=== PATIENT | male | born 1950 | race American Indian/Alaskan Native ===

== ENCOUNTER 2020-07-08 01:50 | Inpatient (IN) | payer MEDICARE ==
[2020-07-08] MEDS ORDERED: methylPREDNISolone Sod Succinate 125 MG/2 ML INJ IV ONE (02:03)
[2020-07-08] MEDS ORDERED: IPRATROPIUM/ALBUTEROL SULFATE 3 ML AMPUL.NEB IH ONE (02:03)
[2020-07-08] MEDS ORDERED: ALBUTEROL 2.5 MG/3 ML NEBU IH ONE (02:03)
--- NOTE | 2020-07-08 02:05 | Event Note ---
ED Screening Note Date of service: 07/08/20 Time: 02:04 ED Screening Note: Patient is a 78-year-old -[place] male with a history of asthma presents to the ED with complaint of acute onset persistent shortness of breath, chest tightness and persistent dry cough for the last 3 hours. Patient states that he has used albuterol inhaler with no relief. Patient denies dizziness, syncope, fever, chills, nausea and vomiting, diarrhea, abdominal pain, sore throat, nasal and sinus congestion, vision changes, neck pain, diaphoresis or back pain. This initial assessment/diagnostic orders/clinical plan/treatment(s) is/are subject to change based on patients health status, clinical progression and re- assessment by fellow clinical providers in the ED. Further treatment and workup at subsequent clinical providers discretion. Patient/guardian urged not to elope from the ED as their condition may be serious if not clinically assessed and managed. Initial orders include: CBC, CMP, troponin, EKG, chest x-ray, nebulizer treatments
[2020-07-08] MEDS ORDERED: MAGNESIUM SULFATE 2 GM/50 ML BAG IV ONE (02:06)
--- NOTE | 2020-07-08 02:10 | Emergency Department Report ---
ED Shortness of Breath HPI - General Chief Complaint: Dyspnea/Respdistress Stated Complaint: ANSHUL Time Seen by Provider: 07/08/20 02:06 Source: patient Mode of arrival: Ambulatory Limitations: No Limitations - History of Present Illness Initial Comments: Patient is a 70-year-old male presents emergency room with complaints of difficulty breathing, shortness of breath, cough, wheezing. Patient has a history of asthma. Patient states been taking his asthma inhaler with no relief. Patient states symptoms started 3 hours ago. Patient dates symptoms w orsening. Patient denies chest pain. Patient states that his chest is tight. Patient states he is having pain with deep breath. Patient states his symptoms are better with rest and worse with exertion. Patient denies fever and chills. Patient states he has a dry cough. Patient denies recent travel. Patient denies recent international travel. Patient denies exposure to the novel coronavirus. Patient denies sick contacts. Patient denies fever and chills. Patient denies cough. Patient denies diarrhea. Patient denies coming in contact with anybody with symptoms of the novel coronavirus. MD Complaint: shortness of breath, cough -: Sudden Severity: severe Worsens With: lying flat, exertion Known History Of: asthma Associated Symptoms: chest pain, pain with inspiration, cough - Related Data Allergies Allergy/AdvReac Type Severity Reaction Status Date / Time No Known Allergies Allergy Unverified 07/08/20 02:21 ED Review of Systems ROS: Stated complaint: ANSHUL Other details as noted in HPI Constitutional: denies: chills, fever Eyes: denies: eye pain, eye discharge, vision change ENT: denies: ear pain, throat pain Respiratory: see HPI, cough, shortness of breath. denies: wheezing Cardiovascular: chest pain. denies: palpitations Endocrine: no symptoms reported Gastrointestinal: denies: abdominal pain, nausea, diarrhea Genitourinary: denies: urgency, dysuria Musculoskeletal: denies: back pain, joint swelling, arthralgia Skin: denies: rash, lesions Neurological: denies: headache, weakness, paresthesias Psychiatric: denies: anxiety, depression Hematological/Lymphatic: denies: easy bleeding, easy bruising ED Past Medical Hx - Past Medical History Previous Medical History?: Yes Hx Hypertension: Yes Hx Asthma: Yes - Surgical History Past Surgical History?: No - Family History Family history: no significant - Social History Smoking Status: Former Smoker Substance Use Type: None ED Physical Exam - General Limitations: No Limitations General appearance: alert, in distress - Head Head exam: Present: atraumatic, normocephalic - Eye Eye exam: Present: normal appearance - ENT ENT exam: Present: mucous membranes moist - Neck Neck exam: Present: normal inspection - Respiratory Respiratory exam: Present: respiratory distress, wheezes, accessory muscle use, decreased breath sounds - Cardiovascular Cardiovascular Exam: Present: regular rate, normal rhythm. Absent: systolic murmur, diastolic murmur, rubs, gallop - GI/Abdominal GI/Abdominal exam: Present: soft, normal bowel sounds - Rectal Rectal exam: Present: deferred - Extremities Exam Extremities exam: Present: normal inspection - Back Exam Back exam: Present: normal inspection - Neurological Exam Neurological exam: Present: alert, oriented X3 - Psychiatric Psychiatric exam: Present: normal affect, normal mood - Skin Skin exam: Present: warm, dry, intact, normal color. Absent: rash ED Course Vital Signs 07/08/20 07/08/20 07/08/20 02:07 02:21 02:31 Temperature 97.9 F 98.2 F Pulse Rate 117 H 101 H 102 H Respiratory 24 25 H 23 Rate Blood Pressure 205/140 191/105 Blood Pressure 191/105 [Right] O2 Sat by Pulse 92 96 97 Oximetry 07/08/20 07/08/20 07/08/20 02:45 03:01 04:01 Temperature Pulse Rate 97 H 95 H 94 H Respiratory 13 14 15 Rate Blood Pressure 158/89 158/89 148/67 Blood Pressure [Right] O2 Sat by Pulse 98 99 99 Oximetry - Reevaluation(s) Reevaluation #1: Patient is having difficulty breathing, increased work to breathe, wheezing and shortness of breath. Patient will be given mag, duo nebs and Solu-Medrol. 07/08/20 02:09 Reevaluation #2: Patient still having increased work to breathe. Patient has received mag, Solu- Medrol and is currently on a DuoNeb. Patient still having hypoxia and difficulty and increased work to breathe. Patient will be placed on BiPAP. 07/08/20 02:37 Reevaluation #3: Patient's work to breathe has improved. Patient on BiPAP. Patient still having slight wheezing but the wheezing has improved since initial evaluation. I discussed all results with patient. I discussed plan of care with patient. Patient agrees with plan of care and admission. Patient to be admitted to the hospitalist service. 07/08/20 03:12 - Consultations Consultation #1: Hospitalist consulted for admission. Hospitalist to admit patient. 07/08/20 03:13 ED Medical Decision Making - Lab Data Result diagrams: 07/08/20 02:19 07/08/20 02:19 - EKG Data -: EKG Interpreted by Me EKG shows normal: sinus rhythm, axis, intervals, QRS complexes, ST-T waves Rate: normal - Radiology Data Radiology results: report reviewed, image reviewed interpreted by me: Chest x-ray: No pneumonia, no pneumothorax, no foreign body, no osseous findings, no acute findings CHEST 1 VIEW 07/08/2020 1:27 AM INDICATION / CLINICAL INFORMATION: dyspnea. COMPARISON: None available. FINDINGS: SUPPORT DEVICES: None. HEART / MEDIASTINUM: No significant abnormality. LUNGS / PLEURA: No significant pulmonary or pleural abnormality. No pneumothorax. ADDITIONAL FINDINGS: No significant additional findings. IMPRESSION: No acute abnormality. - Medical Decision Making Patient is a 7-year-old male that presents emergency room with complaints of difficulty breathing, shortness of breath, cough, wheezing, asthmatic attack. Patient on initial evaluation found to be increased work of breathing, difficulty breathing, wheezing, short of breath, respiratory distress. Patient was given Solu-Medrol, magnesium and an hour-long DuoNeb. Patient continued to have increased work of breathing placed was placed on BiPAP. Patient was also hypoxic 100% oxygen and a DuoNeb. Patient responded well to BiPAP. Patient had labs done which were essentially unremarkable. Patient chest x-ray was negative for acute finding. Patient EKG was negative for acute findings and normal ST. Patient EKG shows a normal sinus rhythm. I personally reviewed the chest x-ray and EKG. Patient admitted to the hospital service for further evaluation and treatment and into the IMCU. Critical care time documented due to the multiple reassessments, prolonged time at the bedside, interpretation of diagnostics and labs. - Differential Diagnosis Shortness of breath, status asthmaticus, difficulty breathing, hypoxia, res Critical Care Time: Yes Critical care time in (mins) excluding proc time.: 45 Critical care attestation.: If time is entered above; I have spent that time in minutes in the direct care of this critically ill patient, excluding procedure time. Critical Care Time: 45 minutes ED Disposition Clinical Impression: Shortness of breath, Respiratory distress Respiratory failure Qualifiers: Chronicity: acute Respiratory failure complication: hypoxia Qualified Code(s): J96.01 - Acute respiratory failure with hypoxia Status asthmaticus Qualifiers: Asthma severity: severe Asthma persistence: persistent Qualified Code(s): J45.52 - Severe persistent asthma with status asthmaticus Disposition: 09 OP ADMIT IP TO THIS HOSP Is pt being admited?: Yes Does the pt Need Aspirin: No Condition: Critical Time of Disposition: 03:14
--- NOTE | 2020-07-08 02:35 | XRay Report ---
CHEST 1 VIEW 07/08/2020 1:27 AM INDICATION / CLINICAL INFORMATION: dyspnea. COMPARISON: None available. FINDINGS: SUPPORT DEVICES: None. HEART / MEDIASTINUM: No significant abnormality. LUNGS / PLEURA: No significant pulmonary or pleural abnormality. No pneumothorax. ADDITIONAL FINDINGS: No significant additional findings. IMPRESSION: No acute abnormality. Signer Name: Santy Arnold MD Signed: 07/08/2020 2:30 AM Workstation Name: [id number]
[2020-07-08 02:42] LABS: Basophils # (Auto) 0.1 K/mm3 (0.0-0.1); Basophils % (Auto) 0.9 % (0.0-1.8); Eosinophils # (Auto) 0.9 K/mm3 (0.0-0.4); Eosinophils % (Auto) 11.4 % (0.0-4.3); Hemoglobin 14.8 gm/dl (11.8-15.2); Lymphocytes # (Auto) 2.1 K/mm3 (1.2-5.4); Mean Corpuscular HGB Conc 33 % (32-34); Mean Corpuscular Volume 93 fl (84-94); Monocytes # (Auto) 0.8 K/mm3 (0.0-0.8); Monocytes % (Auto) 10.3 % (0.0-7.3); Platelet Count 286 K/mm3 (140-440); Red Blood Count 4.86 M/mm3 (3.65-5.03); Red Cell Distribution Width 14.6 % (13.2-15.2)
[2020-07-08 03:07] LABS: Alanine Aminotransferase 18 units/L (7-56); Albumin 3.8 g/dL (3.9-5); BUN/Creatinine Ratio 11; Blood Urea Nitrogen 14 mg/dL (9-20); Calcium 8.7 mg/dL (8.4-10.2); Hemolysis Index 10
--- NOTE | 2020-07-08 07:44 | History and Physical Report ---
History of Present Illness Date of examination: 07/08/20 Date of admission: 07/08/20 03:13 Chief complaint: Acute hypoxic respiratory failure/BiPAP/asthma exacerbation History of present illness: 70-year-old male patient with significant past medical history of bronchial asthma, hypertension presented to the emergency room with worsening shortness of breath chest tightness and cough. Patient used albuterol inhaler with no relief, patient denies any fever, no nausea vomiting or diaphoresis Patient denies upper respiratory symptoms, cough nonproductive. Initial work-up in the emergency room, chest x-ray no acute abnormality noted Patient received nebulizers and IV steroids with mild improvement No history of intubation in the past. Patient was severely hypoxemic requiring BiPAP. Past History Past Medical History: hypertension, other (Bronchial asthma) Past Surgical History: No surgical history Social history: smoking (Ex-smoker). denies: alcohol abuse, prescription drug abuse Family history: no significant family history Medications and Allergies Allergies Allergy/AdvReac Type Severity Reaction Status Date / Time No Known Allergies Allergy Unverified 07/08/20 02:21 Home Medications Medication Instructions Recorded Confirmed Last Taken Type amLODIPine 10 mg PO DAILY 07/08/20 07/08/20 Unknown History Review of Systems Constitutional: weakness, no weight loss, no weight gain, no fever, no chills Ears, nose, mouth and throat: no nasal congestion, no nasal discharge Cardiovascular: shortness of breath, no chest pain, no orthopnea, no palpitati ons Respiratory: cough, shortness of breath, no cough with sputum, no hemoptysis Gastrointestinal: no abdominal pain, no nausea, no vomiting Genitourinary Male: no dysuria, no hematuria Musculoskeletal: no myalgias, no arthritis Integumentary: no rash, no lesions Neurological: no seizures, no syncope Psychiatric: no anxiety, no depression Endocrine: no cold intolerance, no heat intolerance Hematologic/Lymphatic: no easy bruising, no easy bleeding Allergic/Immunologic: no urticaria, no allergic rhinitis Exam - Constitutional Vitals: Temp Pulse Resp BP Pulse Ox 98.2 F 89 12 141/88 96 07/08/20 02:21 07/08/20 06:00 07/08/20 06:00 07/08/20 06:00 07/08/20 06:00 General appearance: Present: mild distress, well-nourished - EENT Eyes: Present: PERRL, EOM intact - Neck Neck: Present: supple, normal ROM - Respiratory Respiratory effort: normal Respiratory: bilateral: diminished, rhonchi, negative: rales, wheezing - Cardiovascular Rhythm: regular Heart Sounds: Present: S1 & S2 - Extremities Extremities: no ischemia, No edema - Abdominal General gastrointestinal: Present: soft, non-tender, non-distended, normal bowel sounds - Integumentary Integumentary: Present: clear, warm - Musculoskeletal Musculoskeletal: strength equal bilaterally, generalized weakness - Psychiatric Psychiatric: appropriate mood/affect, cooperative - Neurologic Neurologic: CNII-XII intact, moves all extremities HEART Score - HEART Score Troponin: Troponin T < 0.010 ng/mL (0.00-0.029) 07/08/20 02:19 Results - Labs CBC & Chem 7: 07/08/20 02:19 07/08/20 02:19 Labs: Abnormal lab results 07/08/20 07/08/20 Range/Units 02:19 02:19 [place] % (Auto) 10.3 H (0.0-7.3) % Eos % (Auto) 11.4 H (0.0-4.3) % Eos # (Auto) 0.9 H (0.0-0.4) K/mm3 Glucose 110 H (75-100) mg/dL Albumin 3.8 L (3.9-5) g/dL Assessment and Plan --Acute hypoxic respiratory failure; requiring BiPAP Continue oxygen titrate O2 sats to more than 90% BiPAP as needed, treat the underlying cause Bronchial asthma exacerbation Pulmonary consult if needed --Acute exacerbation of bronchial asthma; Oxygen titrate O2 sats to more than 90% Nebulizers, IV steroids, IV antibiotics if needed Inhalation steroids, pulmonary evaluation if no improvement --Acute bronchitis; Secondary to acute exacerbation of bronchial asthma Bronchodilators, antibiotics, supportive care --Hypertension; moderate control low-oral dose hydralazine IV hydralazine as needed --DVT prophylaxis; Lovenox --Full CODE STATUS We will closely monitor the patient and adjust management as needed Patient may be downgraded from ICU2 to telemetry Plan of care reviewed with the patient and his nurse
[2020-07-08] MEDS: ALBUTEROL 2.5 MG/3 ML NEBU IH PRN ×2 (08:46→22:27)
[2020-07-08] MEDS: BUDESONIDE 0.25 MG/2 ML NEBU IH SCH ×2 (08:46→22:27)
[2020-07-08] MEDS: PANTOPRAZOLE 40 MG TAB PO SCH (09:38)
--- NOTE | 2020-07-08 12:06 | Event Note ---
Date: 07/08/20 I called and spoke with patient's daughter Ms Saleem [phone] and discussed in detail About the patient's condition, tests and reports, treatment and discharge plan, answered all her questions Encouraged her to call back if she has new questions or concerns, patient's nurse is aware of my conversation with the daughter
[2020-07-08] MEDS: hydrALAZINE 10 MG TAB PO SCH ×2 (15:17→21:21)
[2020-07-08] MEDS: methylPREDNISolone Sod Succinate 40 MG/1 ML INJ IV SCH ×2 (15:18→21:20)
[2020-07-08] MEDS: ENOXAPARIN 40 MG/0.4 ML INJ SUB-Q SCH (21:20)
[2020-07-08] MEDS: guaiFENesin DM 200/20 MG ORAL LIQD 10 ML PO PRN (21:20)
[2020-07-09] MEDS: methylPREDNISolone Sod Succinate 40 MG/1 ML INJ IV SCH ×3 (06:27→22:27)
[2020-07-09] MEDS: hydrALAZINE 10 MG TAB PO SCH (06:28)
[2020-07-09] MEDS: PANTOPRAZOLE 40 MG TAB PO SCH (08:22)
[2020-07-09] MEDS ORDERED: hydrALAZINE 10 MG TAB PO SCH (10:20)
--- NOTE | 2020-07-09 10:22 | Progress Note ---
Assessment and Plan Assessment and plan: --Acute hypoxic respiratory failure; requiring BiPAP Continue oxygen titrate O2 sats to more than 90% BiPAP as needed, treat the underlying cause Bronchial asthma exacerbation Pt is on 2 L of [place] oxygen today saturating 98% Evaluate for home O2 at discharge --Acute exacerbation of bronchial asthma; Oxygen titrate O2 sats to more than 90% Nebulizers, IV steroids, IV antibiotics if needed Inhalation steroids, pulmonary evaluation if no improvement --Acute bronchitis; Secondary to acute exacerbation of bronchial asthma Bronchodilators, antibiotics, supportive care --Hypertension; labile moderate control low-oral dose hydralazine IV hydralazine as needed, --DVT prophylaxis;;Lovenox --Full CODE STATUS We will closely monitor the patient and adjust management as needed I called Ms Saleem [phone] , patient's daughter and updated patient's condition, his oxygen levels, his improvement, and blood pressure fluctuation. She verbalized understanding Plan of care discussed in detail with the patient and his nurse History Interval history: I have seen and examined the patient at the bedside this afternoon Patient's chart and medications reviewed Patient feels slightly better, mild fluctuation of blood pressures Added hydralazine 25 mg 3 times a day Patient feels slightly better mild shortness of breath and some wheeze Vital signs noted Hospitalist Physical - Constitutional Vitals: Temp Pulse Resp BP Pulse Ox 97.5 F L 71 18 150/84 99 07/09/20 04:09 07/09/20 06:28 07/09/20 08:31 07/09/20 06:28 07/09/20 08:31 General appearance: Present: mild distress, well-nourished - EENT Eyes: Present: PERRL, EOM intact - Neck Neck: Present: supple, normal ROM - Respiratory Respiratory effort: normal Respiratory: bilateral: diminished, rhonchi, wheezing, negative: rales - Cardiovascular Rhythm: regular Heart Sounds: Present: S1 & S2 - Extremities Extremities: no ischemia, No edema - Abdominal General gastrointestinal: soft, non-tender, non-distended, normal bowel sounds - Integumentary Integumentary: Present: clear, warm - Psychiatric Psychiatric: appropriate mood/affect, cooperative - Neurologic Neurologic: CNII-XII intact, moves all extremities HEART Score - HEART Score Troponin: Troponin T < 0.010 ng/mL (0.00-0.029) 07/08/20 02:19 Results - Labs CBC & Chem 7: 07/08/20 02:19 07/08/20 02:19 Labs: Laboratory Last Values WBC 7.6 K/mm3 (4.5-11.0) 07/08/20 02:19 RBC 4.86 M/mm3 (3.65-5.03) 07/08/20 02:19 Hgb 14.8 gm/dl (11.8-15.2) 07/08/20 02:19 Hct 45.0 % (35.5-45.6) 07/08/20 02:19 MCV 93 fl (84-94) 07/08/20 02:19 MCH 31 pg (28-32) 07/08/20 02:19 MCHC 33 % (32-34) 07/08/20 02:19 RDW 14.6 % (13.2-15.2) 07/08/20 02:19 Plt Count 286 K/mm3 (140-440) 07/08/20 02:19 Lymph % (Auto) 28.0 % (13.4-35.0) 07/08/20 02:19 [place] % (Auto) 10.3 % (0.0-7.3) H 07/08/20 02:19 Eos % (Auto) 11.4 % (0.0-4.3) H 07/08/20 02:19 Baso % (Auto) 0.9 % (0.0-1.8) 07/08/20 02:19 Lymph # (Auto) 2.1 K/mm3 (1.2-5.4) 07/08/20 02:19 [place] # (Auto) 0.8 K/mm3 (0.0-0.8) 07/08/20 02:19 Eos # (Auto) 0.9 K/mm3 (0.0-0.4) H 07/08/20 02:19 Baso # (Auto) 0.1 K/mm3 (0.0-0.1) 07/08/20 02:19 Seg Neutrophils % 49.4 % (40.0-70.0) 07/08/20 02:19 Seg Neutrophils # 3.8 K/mm3 (1.8-7.7) 07/08/20 02:19 Sodium 140 mmol/L (137-145) 07/08/20 02:19 Potassium 4.0 mmol/L (3.6-5.0) 07/08/20 02:19 Chloride 105.1 mmol/L (98-107) 07/08/20 02:19 Carbon Dioxide 25 mmol/L (22-30) 07/08/20 02:19 Anion Gap 14 mmol/L 07/08/20 02:19 BUN 14 mg/dL (9-20) 07/08/20 02:19 Creatinine 1.3 mg/dL (0.8-1.3) 07/08/20 02:19 Estimated GFR > 60 ml/min 07/08/20 02:19 BUN/Creatinine Ratio 11 % 07/08/20 02:19 Glucose 110 mg/dL (75-100) H 07/08/20 02:19 Calcium 8.7 mg/dL (8.4-10.2) 07/08/20 02:19 Total Bilirubin 0.40 mg/dL (0.1-1.2) 07/08/20 02:19 AST 17 units/L (5-40) 07/08/20 02:19 ALT 18 units/L (7-56) 07/08/20 02:19 Alkaline Phosphatase 83 units/L (35-129) 07/08/20 02:19 Troponin T < 0.010 ng/mL (0.00-0.029) 07/08/20 02:19 Total Protein 6.9 g/dL (6.3-8.2) 07/08/20 02:19 Albumin 3.8 g/dL (3.9-5) L 07/08/20 02:19 Albumin/Globulin Ratio 1.2 % 07/08/20 02:19 [place]/IV: Voiding Method Toilet Active Medications - Current Medications Current Medications: Generic Name Dose Route Start Last Admin Trade Name Freq PRN Reason Stop Dose Admin Albuterol 2.5 mg 07/08/20 07:46 07/08/20 22:27 Albuterol 2.5 Mg/3 Ml Nebu IH 2.5 mg Q4HRT PRN Administration Shortness Of Breath Budesonide 0.25 mg 07/08/20 08:15 07/08/20 22:27 Budesonide 0.25 Mg/2 Ml Nebu IH 0.25 mg Q12HRT TOMMY Administration Enoxaparin Sodium 40 mg 07/08/20 22:00 07/08/20 21:20 Enoxaparin 40 Mg/0.4 Ml Inj SUB-Q 40 mg QDAY@2200 TOMMY Administration Protocol Guaifenesin 10 ml 07/08/20 07:54 07/08/20 21:20 Guaifenesin Dm 200/20 Mg Oral Liqd 10 Ml PO 10 ml Q4H PRN Administration Cough Hydralazine HCl 10 mg 07/08/20 14:00 07/09/20 06:28 Hydralazine 10 Mg Tab PO 10 mg Q8HR TOMMY Administration Hydralazine HCl 10 mg 07/08/20 08:03 Hydralazine 20 Mg/1 Ml Inj IV Q4HR PRN Hypertension Levofloxacin/Dextrose 500 mg in 100 mls @ 100 mls/hr 07/08/20 11:00 07/08/20 12:34 Levaquin 500mg/100ml IV 100 mls/hr Q24H TOMMY Administration Protocol Methylprednisolone Sodium Succinate 60 mg 07/08/20 14:00 07/09/20 06:27 Methylprednisolone Sod Succinate 40 Mg/1 Ml Inj IV 60 mg Q8HR TOMMY Administration Pantoprazole Sodium 40 mg 07/08/20 10:00 07/09/20 08:22 Pantoprazole 40 Mg Tab PO 40 mg QDAC TOMMY Administration
[2020-07-09] MEDS: BUDESONIDE 0.25 MG/2 ML NEBU IH SCH ×2 (10:55→20:04)
[2020-07-09] MEDS: hydrALAZINE 25 MG TAB PO SCH ×3 (12:32→22:28)
--- NOTE | 2020-07-09 18:55 | Event Note ---
Date: 07/09/20 I called Ms Saleem [phone] , patient's daughter and updated patient's condition, his oxygen levels, his improvement, and blood pressure fluctuation And treatment and discharge planning, she had many questions I answered all of them, and encouraged her to call back if she needs any updates about her father's condition and care. I informed patient's nurse of my above conversation with the family
[2020-07-09] MEDS: ENOXAPARIN 40 MG/0.4 ML INJ SUB-Q SCH (22:27)
[2020-07-09] MEDS: guaiFENesin DM 200/20 MG ORAL LIQD 10 ML PO PRN (22:31)
[2020-07-10] MEDS: hydrALAZINE 20 MG/1 ML INJ IV PRN ×2 (05:43→23:55)
[2020-07-10] MEDS: hydrALAZINE 25 MG TAB PO SCH ×3 (05:44→21:12)
[2020-07-10] MEDS: methylPREDNISolone Sod Succinate 40 MG/1 ML INJ IV SCH ×2 (05:46→17:24)
[2020-07-10] MEDS: ALBUTEROL 2.5 MG/3 ML NEBU IH PRN (06:40)
[2020-07-10] MEDS: PANTOPRAZOLE 40 MG TAB PO SCH (08:11)
[2020-07-10] MEDS: BUDESONIDE 0.25 MG/2 ML NEBU IH SCH (08:13)
[2020-07-10] MEDS ORDERED: BUDESONIDE 0.25 MG/2 ML NEBU IH SCH (08:29)
[2020-07-10 09:39] LABS: Creatine Kinase MB 2.8 ng/mL (0.0-4.0)
[2020-07-10] MEDS: amLODIPine 10 MG TAB PO SCH (10:10)
--- NOTE | 2020-07-10 11:11 | Progress Note ---
Assessment and Plan Assessment and plan: --Hiccups; Start Thorazine as needed And supportive care --Acute hypoxic respiratory failure; requiring BiPAP upon admission Patient currently on nasal cannula oxygen Patient required 3 L, titrated to low 2 L saturating well Today patient O2 sat room air is 100% Supplemental oxygen as needed Evaluate for home O2 at discharge --Acute exacerbation of bronchial asthma; Oxygen titrate O2 sats to more than 90% Nebulizers, taper IV steroid dose from 40 every 8 to 40 every 12 hours Continue I IV antibiotics Patient symptoms significantly improved --Acute bronchitis; Secondary to acute exacerbation of bronchial asthma Bronchodilators, antibiotics, supportive care --Hypertension; labile blood pressure today 156/78 Continue amlodipine, increase dose of hydralazine Patient's blood pressures may improve further once he goes home --DVT prophylaxis;;Lovenox PT evaluation/ambulate as tolerated --Full CODE STATUS We will closely monitor the patient and adjust management as needed I called patient's daughter Ms Saleem yesterday [phone] ,and updated patient's condition, his oxygen levels, his improvement, and blood pressure fluctuation. She verbalized understanding Plan of care discussed in detail with the patient and his nurse Increase ambulation Possible discharge in 1 to 2 days if stable 07/10/2020; patient had an episode of severe hypoxia last night Requiring additional nebulizer treatment. Patient also has hiccups, advised Thorazine as needed Ambulate as tolerated History Interval history: I have seen and examined the patient at the bedside Patient's chart and medications reviewed Patient feels slightly better, however complains of episode of severe shortness of breath last night Significantly improved this morning Patient complains of some hiccups Vital signs reviewed Hospitalist Physical - Constitutional Vitals: Temp Pulse Resp BP Pulse Ox 98.3 F 87 17 156/78 98 07/10/20 08:01 07/10/20 10:10 07/10/20 08:26 07/10/20 10:10 07/10/20 08:26 General appearance: Present: no acute distress, well-nourished - EENT Eyes: Present: PERRL, EOM intact - Neck Neck: Present: supple, normal ROM - Respiratory Respiratory effort: normal Respiratory: bilateral: diminished, rhonchi, wheezing - Cardiovascular Rhythm: regular Heart Sounds: Present: S1 & S2 - Extremities Extremities: no ischemia, No edema - Abdominal General gastrointestinal: soft, non-tender, non-distended, normal bowel sounds - Integumentary Integumentary: Present: clear, warm - Psychiatric Psychiatric: appropriate mood/affect, cooperative - Neurologic Neurologic: CNII-XII intact, moves all extremities HEART Score - HEART Score Troponin: Troponin T < 0.010 ng/mL (0.00-0.029) 07/10/20 09:00 Results - Labs CBC & Chem 7: 07/08/20 02:19 07/08/20 02:19 Labs: Laboratory Last Values WBC 7.6 K/mm3 (4.5-11.0) 07/08/20 02:19 RBC 4.86 M/mm3 (3.65-5.03) 07/08/20 02:19 Hgb 14.8 gm/dl (11.8-15.2) 07/08/20 02:19 Hct 45.0 % (35.5-45.6) 07/08/20 02:19 MCV 93 fl (84-94) 07/08/20 02:19 MCH 31 pg (28-32) 07/08/20 02:19 MCHC 33 % (32-34) 07/08/20 02:19 RDW 14.6 % (13.2-15.2) 07/08/20 02:19 Plt Count 286 K/mm3 (140-440) 07/08/20 02:19 Lymph % (Auto) 28.0 % (13.4-35.0) 07/08/20 02:19 [place] % (Auto) 10.3 % (0.0-7.3) H 07/08/20 02:19 Eos % (Auto) 11.4 % (0.0-4.3) H 07/08/20 02:19 Baso % (Auto) 0.9 % (0.0-1.8) 07/08/20 02:19 Lymph # (Auto) 2.1 K/mm3 (1.2-5.4) 07/08/20 02:19 [place] # (Auto) 0.8 K/mm3 (0.0-0.8) 07/08/20 02:19 Eos # (Auto) 0.9 K/mm3 (0.0-0.4) H 07/08/20 02:19 Baso # (Auto) 0.1 K/mm3 (0.0-0.1) 07/08/20 02:19 Seg Neutrophils % 49.4 % (40.0-70.0) 07/08/20 02:19 Seg Neutrophils # 3.8 K/mm3 (1.8-7.7) 07/08/20 02:19 Sodium 140 mmol/L (137-145) 07/08/20 02:19 Potassium 4.0 mmol/L (3.6-5.0) 07/08/20 02:19 Chloride 105.1 mmol/L (98-107) 07/08/20 02:19 Carbon Dioxide 25 mmol/L (22-30) 07/08/20 02:19 Anion Gap 14 mmol/L 07/08/20 02:19 BUN 14 mg/dL (9-20) 07/08/20 02:19 Creatinine 1.3 mg/dL (0.8-1.3) 07/08/20 02:19 Estimated GFR > 60 ml/min 07/08/20 02:19 BUN/Creatinine Ratio 11 % 07/08/20 02:19 Glucose 110 mg/dL (75-100) H 07/08/20 02:19 Calcium 8.7 mg/dL (8.4-10.2) 07/08/20 02:19 Total Bilirubin 0.40 mg/dL (0.1-1.2) 07/08/20 02:19 AST 17 units/L (5-40) 07/08/20 02:19 ALT 18 units/L (7-56) 07/08/20 02:19 Alkaline Phosphatase 83 units/L (35-129) 07/08/20 02:19 Total Creatine Kinase 86 units/L (55-170) 07/10/20 09:00 CK-MB (CK-2) 2.8 ng/mL (0.0-4.0) 07/10/20 09:00 CK-MB (CK-2) Rel Index 3.2 (0-4) 07/10/20 09:00 Troponin T < 0.010 ng/mL (0.00-0.029) 07/10/20 09:00 Total Protein 6.9 g/dL (6.3-8.2) 07/08/20 02:19 Albumin 3.8 g/dL (3.9-5) L 07/08/20 02:19 Albumin/Globulin Ratio 1.2 % 07/08/20 02:19 [place]/IV: Voiding Method Toilet Active Medications - Current Medications Current Medications: Generic Name Dose Route Start Last Admin Trade Name Freq PRN Reason Stop Dose Admin Albuterol 2.5 mg 07/08/20 07:46 07/10/20 06:40 Albuterol 2.5 Mg/3 Ml Nebu IH 2.5 mg Q4HRT PRN Administration Shortness Of Breath Amlodipine Besylate 10 mg 07/10/20 10:00 07/10/20 10:10 Amlodipine 10 Mg Tab PO 10 mg DAILY TOMMY Administration Budesonide 0.5 mg 07/10/20 08:29 Budesonide 0.25 Mg/2 Ml Nebu IH Q12HRT [facility] Enoxaparin Sodium 40 mg 07/08/20 22:00 07/09/20 22:27 Enoxaparin 40 Mg/0.4 Ml Inj SUB-Q 40 mg QDAY@2200 TOMMY Administration Protocol Guaifenesin 10 ml 07/08/20 07:54 07/09/20 22:31 Guaifenesin Dm 200/20 Mg Oral Liqd 10 Ml PO 10 ml Q4H PRN Administration Cough Hydralazine HCl 10 mg 07/08/20 08:03 07/10/20 05:43 Hydralazine 20 Mg/1 Ml Inj IV 10 mg Q4HR PRN Administration Hypertension Hydralazine HCl 25 mg 07/09/20 10:30 07/10/20 05:44 Hydralazine 25 Mg Tab PO 25 mg Q8HR TOMMY Administration Levofloxacin/Dextrose 500 mg in 100 mls @ 100 mls/hr 07/08/20 11:00 07/10/20 10:10 Levaquin 500mg/100ml IV 100 mls/hr Q24H TOMMY Administration Protocol Methylprednisolone Sodium Succinate 60 mg 07/08/20 14:00 07/10/20 05:46 Methylprednisolone Sod Succinate 40 Mg/1 Ml Inj IV 60 mg Q8HR TOMMY Administration Pantoprazole Sodium 40 mg 07/08/20 10:00 07/10/20 08:11 Pantoprazole 40 Mg Tab PO 40 mg QDAC TOMMY Administration
[2020-07-10] MEDS: METOCLOPRAMIDE 10 MG/2 ML INJ IV PRN ×2 (18:17→23:54)
--- NOTE | 2020-07-10 19:07 | Event Note ---
Date: 07/10/20 I spoke with patient's daughter Ms Slaeem at [phone] , and updated patient's condition, brief episode of hiccups, and significant improvement of his father's condition, and discharge planning/possible discharge home tomorrow if stable, also discussed with her the home oxygen evaluation prior to discharge. I answered all her questions. She verbalized understanding.
[2020-07-10] MEDS: BUDESONIDE 0.5 MG/2 ML NEBU IH SCH (20:55)
[2020-07-10] MEDS: ENOXAPARIN 40 MG/0.4 ML INJ SUB-Q SCH (21:13)
[2020-07-11] MEDS: hydrALAZINE 25 MG TAB PO SCH ×3 (07:00→21:36)
[2020-07-11] MEDS: methylPREDNISolone Sod Succinate 40 MG/1 ML INJ IV SCH ×2 (07:00→18:33)
[2020-07-11] MEDS: METOCLOPRAMIDE 10 MG/2 ML INJ IV PRN ×2 (07:23→18:36)
[2020-07-11] MEDS: BUDESONIDE 0.5 MG/2 ML NEBU IH SCH ×2 (07:34→22:55)
--- NOTE | 2020-07-11 08:51 | Progress Note ---
Assessment and Plan Assessment and plan: --Hiccups; Start Thorazine as needed And supportive care --Acute hypoxic respiratory failure; requiring BiPAP upon admission Patient currently on nasal cannula oxygen Patient required 3 L, titrated to low 2 L saturating well Today patient O2 sat room air is 100% Supplemental oxygen as needed Evaluate for home O2 at discharge --Acute exacerbation of bronchial asthma; Oxygen titrate O2 sats to more than 90% Nebulizers, taper IV steroid dose from 40 every 8 to 40 every 12 hours Continue I IV antibiotics Patient symptoms significantly improved --Acute bronchitis; Secondary to acute exacerbation of bronchial asthma Bronchodilators, antibiotics, supportive care --Hypertension; labile blood pressure today 156/78 Continue amlodipine, increase dose of hydralazine Patient's blood pressures may improve further once he goes home --DVT prophylaxis;;Lovenox PT evaluation/ambulate as tolerated --Full CODE STATUS We will closely monitor the patient and adjust management as needed I called patient's daughter Ms Saleem yesterday [phone] ,and updated patient's condition, his oxygen levels, his improvement, and blood pressure fluctuation. She verbalized understanding Plan of care discussed in detail with the patient and his nurse Increase ambulation Possible discharge in 1 to 2 days if stable 07/10/2020; patient had an episode of severe hypoxia last night Requiring additional nebulizer treatment. Patient also has hiccups, advised Thorazine as needed Patient had some PVCs on the monitor patient was asymptomatic Rhythm strips reviewed 07/11/2020; patient's hiccups resolved, feels better today Ambulated in the hallway, maintaining room air O2 sats Low-grade fever 100.7, Tylenol as needed, patient is already on Levaquin day 4 Possible discharge tomorrow if stable History Interval history: I have seen and examined the patient at the bedside Patient's chart and medications reviewed Patient feels better saturating well on room air oxygen Ambulatory tolerating oral nutrition Did not have any hiccups Patient complains of mild shortness of breath Vital signs noted Hospitalist Physical - Constitutional Vitals: Temp Pulse Resp BP Pulse Ox 99.5 F 89 18 159/77 97 07/11/20 07:53 07/11/20 07:53 07/11/20 07:34 07/11/20 07:53 07/11/20 07:53 General appearance: Present: no acute distress, well-nourished - EENT Eyes: Present: PERRL, EOM intact - Neck Neck: Present: supple, normal ROM - Respiratory Respiratory effort: normal Respiratory: bilateral: diminished, rhonchi, negative: rales, wheezing - Cardiovascular Rhythm: regular Heart Sounds: Present: S1 & S2 - Extremities Extremities: no ischemia, No edema - Abdominal General gastrointestinal: soft, non-tender, non-distended, normal bowel sounds - Integumentary Integumentary: Present: clear, warm - Psychiatric Psychiatric: appropriate mood/affect, cooperative - Neurologic Neurologic: CNII-XII intact, moves all extremities HEART Score - HEART Score Troponin: Troponin T < 0.010 ng/mL (0.00-0.029) 07/10/20 09:00 Results - Labs CBC & Chem 7: 07/08/20 02:19 07/08/20 02:19 Labs: Laboratory Last Values WBC 7.6 K/mm3 (4.5-11.0) 07/08/20 02:19 RBC 4.86 M/mm3 (3.65-5.03) 07/08/20 02:19 Hgb 14.8 gm/dl (11.8-15.2) 07/08/20 02:19 Hct 45.0 % (35.5-45.6) 07/08/20 02:19 MCV 93 fl (84-94) 07/08/20 02:19 MCH 31 pg (28-32) 07/08/20 02:19 MCHC 33 % (32-34) 07/08/20 02:19 RDW 14.6 % (13.2-15.2) 07/08/20 02:19 Plt Count 286 K/mm3 (140-440) 07/08/20 02:19 Lymph % (Auto) 28.0 % (13.4-35.0) 07/08/20 02:19 [place] % (Auto) 10.3 % (0.0-7.3) H 07/08/20 02:19 Eos % (Auto) 11.4 % (0.0-4.3) H 07/08/20 02:19 Baso % (Auto) 0.9 % (0.0-1.8) 07/08/20 02:19 Lymph # (Auto) 2.1 K/mm3 (1.2-5.4) 07/08/20 02:19 [place] # (Auto) 0.8 K/mm3 (0.0-0.8) 07/08/20 02:19 Eos # (Auto) 0.9 K/mm3 (0.0-0.4) H 07/08/20 02:19 Baso # (Auto) 0.1 K/mm3 (0.0-0.1) 07/08/20 02:19 Seg Neutrophils % 49.4 % (40.0-70.0) 07/08/20 02:19 Seg Neutrophils # 3.8 K/mm3 (1.8-7.7) 07/08/20 02:19 Sodium 140 mmol/L (137-145) 07/08/20 02:19 Potassium 4.0 mmol/L (3.6-5.0) 07/08/20 02:19 Chloride 105.1 mmol/L (98-107) 07/08/20 02:19 Carbon Dioxide 25 mmol/L (22-30) 07/08/20 02:19 Anion Gap 14 mmol/L 07/08/20 02:19 BUN 14 mg/dL (9-20) 07/08/20 02:19 Creatinine 1.3 mg/dL (0.8-1.3) 07/08/20 02:19 Estimated GFR > 60 ml/min 07/08/20 02:19 BUN/Creatinine Ratio 11 % 07/08/20 02:19 Glucose 110 mg/dL (75-100) H 07/08/20 02:19 Calcium 8.7 mg/dL (8.4-10.2) 07/08/20 02:19 Total Bilirubin 0.40 mg/dL (0.1-1.2) 07/08/20 02:19 AST 17 units/L (5-40) 07/08/20 02:19 ALT 18 units/L (7-56) 07/08/20 02:19 Alkaline Phosphatase 83 units/L (35-129) 07/08/20 02:19 Total Creatine Kinase 86 units/L (55-170) 07/10/20 09:00 CK-MB (CK-2) 2.8 ng/mL (0.0-4.0) 07/10/20 09:00 CK-MB (CK-2) Rel Index 3.2 (0-4) 07/10/20 09:00 Troponin T < 0.010 ng/mL (0.00-0.029) 07/10/20 09:00 Total Protein 6.9 g/dL (6.3-8.2) 07/08/20 02:19 Albumin 3.8 g/dL (3.9-5) L 07/08/20 02:19 Albumin/Globulin Ratio 1.2 % 07/08/20 02:19 [place]/IV: Voiding Method Toilet Active Medications - Current Medications Current Medications: Generic Name Dose Route Start Last Admin Trade Name Freq PRN Reason Stop Dose Admin Albuterol 2.5 mg 07/08/20 07:46 07/10/20 06:40 Albuterol 2.5 Mg/3 Ml Nebu IH 2.5 mg Q4HRT PRN Administration Shortness Of Breath Amlodipine Besylate 10 mg 07/10/20 10:00 07/10/20 10:10 Amlodipine 10 Mg Tab PO 10 mg DAILY TOMMY Administration Budesonide 0.5 mg 07/10/20 20:00 07/11/20 07:34 Budesonide 0.5 Mg/2 Ml Nebu IH 0.5 mg Q12HRT TOMMY Administration Chlorpromazine HCl 10 mg 07/10/20 11:38 Chlorpromazine 10 Mg Tab PO Q6H PRN Hiccups Enoxaparin Sodium 40 mg 07/08/20 22:00 07/10/20 21:13 Enoxaparin 40 Mg/0.4 Ml Inj SUB-Q 40 mg QDAY@2200 TOMMY Administration Protocol Guaifenesin 10 ml 07/08/20 07:54 07/09/20 22:31 Guaifenesin Dm 200/20 Mg Oral Liqd 10 Ml PO 10 ml Q4H PRN Administration Cough Hydralazine HCl 10 mg 07/08/20 08:03 07/10/20 23:55 Hydralazine 20 Mg/1 Ml Inj IV 10 mg Q4HR PRN Administration Hypertension Hydralazine HCl 50 mg 07/10/20 11:14 07/11/20 07:00 Hydralazine 25 Mg Tab PO 50 mg Q8HR TOMMY Administration Levofloxacin/Dextrose 500 mg in 100 mls @ 100 mls/hr 07/08/20 11:00 07/10/20 10:10 Levaquin 500mg/100ml IV 100 mls/hr Q24H TOMMY Administration Protocol Methylprednisolone Sodium Succinate 40 mg 07/10/20 18:00 07/11/20 07:00 Methylprednisolone Sod Succinate 40 Mg/1 Ml Inj IV 40 mg Q12H TOMMY Administration Metoclopramide HCl 10 mg 07/10/20 18:06 07/11/20 07:23 Metoclopramide 10 Mg/2 Ml Inj IV 10 mg Q6H PRN Administration Hiccups Pantoprazole Sodium 40 mg 07/08/20 10:00 07/10/20 08:11 Pantoprazole 40 Mg Tab PO 40 mg QDAC TOMMY Administration
[2020-07-11] MEDS ORDERED: ALPRAZolam 0.25 MG TAB PO PRN (08:53)
[2020-07-11] MEDS: PANTOPRAZOLE 40 MG TAB PO SCH (09:48)
[2020-07-11] MEDS: hydroCHLOROthiazide 12.5 MG CAP PO SCH (09:48)
[2020-07-11] MEDS: amLODIPine 10 MG TAB PO SCH (09:51)
[2020-07-11] MEDS ORDERED: ACETAMINOPHEN 325 MG TAB PO PRN (17:49)
[2020-07-11] MEDS: ENOXAPARIN 40 MG/0.4 ML INJ SUB-Q SCH (21:35)
[2020-07-12] MEDS: hydrALAZINE 25 MG TAB PO SCH (05:37)
[2020-07-12] MEDS: methylPREDNISolone Sod Succinate 40 MG/1 ML INJ IV SCH (05:37)
[2020-07-12] MEDS: ALBUTEROL 2.5 MG/3 ML NEBU IH PRN (07:45)
[2020-07-12] MEDS: BUDESONIDE 0.5 MG/2 ML NEBU IH SCH (07:45)
[2020-07-12] MEDS ORDERED: levoFLOXacin 500 MG TAB PO SCH (10:00)
[2020-07-12] MEDS: hydroCHLOROthiazide 12.5 MG CAP PO SCH (10:58)
[2020-07-12] MEDS: amLODIPine 10 MG TAB PO SCH (10:58)
[2020-07-12] MEDS: PANTOPRAZOLE 40 MG TAB PO SCH (10:59)
[2020-07-12] MEDS ORDERED: FLU VACC QUAD 2020-2021 (6 months +)/PF 60 0.5 ML SYRINGE IM ONE (12:00)
[2020-07-12] MEDS ORDERED: PNEUMOCOCCAL 23 Valent 0.5 ML VIAL IM ONE (12:00)
[2020-07-12 14:15] VITALS: BP 143/83
--- NOTE | 2020-07-12 14:41 | Discharge Summary ---
Providers - Providers Date of Admission: 07/08/20 03:13 Date of discharge: 07/12/20 Attending physician: JEWEL CEJA Primary care physician: [employer] Hospitalization Reason for admission: Acute hypoxic respiratory failure/on BiPAP/bronchial asthma exacerbation Condition: Stable Pertinent studies: Chest x-ray no acute abnormality Hospital course: 70-year-old -[place] male patient with significant past medical history of bronchial asthma hypertension was admitted through emergency room with worsening shortness of breath, initial evaluation is consistent with acute hypoxic respiratory failure secondary to bronchial asthma exacerbation and acute bronchitis and pneumonitis Patient had hypoxia requiring BiPAP Admitted to the hospital symptomatically managed with supplemental oxygen titrate O2 sats to more than 90% nebulizers IV steroids, IV antibiotics, inhalation steroids and supportive care Patient also had some cough managed with cough medicine Patient had intermittent severe hiccups, did not have any uremia Managed with Thorazine/metoclopramide intermittently as needed Patient had severe shortness of breath for 2 -3 days gradually improved Today patient is comfortable no new complaints vital signs stable Physical examination prior to discharge no new changes Patient is ambulatory without support and tolerating oral nutrition. Patient was saturating more than 97% on room air oxygen. No indication for home oxygen Patient is stable at discharge Final diagnosis; --Hiccups; resolved --Acute hypoxic respiratory failure; improved --Acute exacerbation of bronchial asthma; --Acute bronchitis/pneumonitis --Hypertension; well controlled Stable at discharge Disposition: [id number] TO HOME OR SELFCARE Final Discharge Diagnosis (Prints w/discharge instructions): Final diagnosis;. --Hiccups; resolved. --Acute hypoxic respiratory failure; improved. --Acute exacerbation of bronchial asthma;. --Acute bronchitis/pneumonitis. --Hypertension; well controlled. - Time spent for discharge: 35 minutes Core Measure Documentation - Palliative Care Palliative Care/ Comfort Measures: Not Applicable - Core Measures Any of the following diagnoses?: none Exam - Constitutional Vitals: Temp Pulse Resp BP Pulse Ox 97.6 F 93 H 20 143/83 95 07/12/20 11:40 07/12/20 11:40 07/12/20 11:40 07/12/20 11:40 07/12/20 11:40 General appearance: Present: no acute distress, well-nourished - EENT Eyes: Present: PERRL, EOM intact - Neck Neck: Present: supple, normal ROM - Respiratory Respiratory effort: normal Respiratory: bilateral: diminished, negative: rales, rhonchi, wheezing - Cardiovascular Rhythm: regular Heart Sounds: Present: S1 & S2 - Extremities Extremities: no ischemia, No edema - Abdominal General gastrointestinal: Present: soft, non-tender, non-distended, normal bowel sounds - Integumentary Integumentary: Present: clear, warm - Musculoskeletal Musculoskeletal: strength equal bilaterally - Psychiatric Psychiatric: appropriate mood/affect, cooperative - Neurologic Neurologic: CNII-XII intact, moves all extremities Plan Activity: advance as tolerated, fall precautions Diet: other (Cardiac diet) Additional Instructions: Periodic checking of blood pressures. Once patient is well and comfortable, his blood pressures may improve and may not need all the blood pressure medications. Check with primary care physician. If you have worsening symptoms contact MD or go to emergency room Follow up with: PRIMARY CARE,MD [Primary Care Provider] - 7 Days Prescriptions: amLODIPine 10 mg PO DAILY #30 hydrALAZINE [Apresoline TAB] 25 mg PO Q8HR #90 tab guaiFENesin DM [Guaifenesin Dm Syrup] 10 ml PO Q6H PRN 10 Days #1 bottle PRN Reason: Cough hydroCHLOROthiazide [HCTZ] 12.5 mg PO QDAY #30 capsule predniSONE 10 mg PO QDAY #10 tab Albuterol Mdi (or & Nicu Only) [ProAir HFA Inhaler] 2 puff IH QID PRN #8.5 gram PRN Reason: Shortness Of Breath chlorproMAZINE [Thorazine] 10 mg PO Q8H PRN #20 tablet PRN Reason: Hiccups
== END 2020-07-12 16:45 | disposition home or self-care (01) | DRG 189 ==
LOC: ED 01:50 → IMCU 03:13 → 4A 12:01
PROVIDERS: ADMIT Internal Medicine Geriatric Medicine; ATTEND Internal Medicine
PROC: 5A09357 Assistance with Respiratory Ventilation, Less than 24 Consecutive Hours, Continuous Positive Airway Pressure (ICD-10-PCS; principal; 2020-07-08)
PROC: 3E0234Z Introduction of Serum, Toxoid and Vaccine into Muscle, Percutaneous Approach (ICD-10-PCS; 2020-07-12)
DX: J96.01 Acute respiratory failure with hypoxia (principal); J18.9 Pneumonia, unspecified organism; J45.52 Severe persistent asthma with status asthmaticus; J44.0 Chronic obstructive pulmonary disease with (acute) lower respiratory infection; J20.9 Acute bronchitis, unspecified; I10 Essential (primary) hypertension; Z23 Encounter for immunization; Z87.891 Personal history of nicotine dependence
CPT/HCPCS: 36415; 71045; 80053; 82550; 82553; 84484; 85025; 90686; 90732; 93005; 94640; 94644; 94660; 94760; 96361; 96365; 96375; G0378; J0360; J1650; J1956; J2765; J2920; J2930; J3475